=== PATIENT | male | born 1955 | race Caucasian/White ===

== ENCOUNTER 2018-04-17 12:17 | Outpatient (CLI) | payer OTHER ==
[2018-04-17] MEDS ORDERED: IOTHALAMATE MEGLUMINE 50 ML VIAL ONE (12:36)
--- NOTE | 2018-04-25 08:06 | XRAY Report ---
Reason: RIGHT HIP IMPINGEMENT SYNDROME Procedure Date: 04/17/2018 Accession Number: [id number] / [id number] Procedure: [place] - Inj/Aspiration Major Joint CPT Code: FULL RESULT: EXAM: RIGHT HIP JOINT INJECTION WITH FLUOROSCOPIC GUIDANCE EXAM DATE: 04/17/2018 01:24 PM. CLINICAL HISTORY: RIGHT HIP IMPINGEMENT SYNDROME. COMPARISON: None. TECHNIQUE: The risks, benefits, and alternatives of the procedure were discussed with the patient. All questions were answered. Written and verbal consent were obtained. The hip joint was marked under fluoroscopy and prepped and draped in a sterile manner. Local anesthesia was performed with 1% lidocaine. A 22-gauge needle was then inserted into the hip joint. 10 mL of a solution containing 0.5 % ropivacaine, 25% iodinated contrast and particulate steroid was then injected. The needle was removed without immediate complication. Other: None. Fluoroscopy Time: 0.27 minutes. Number of Images: 3. FINDINGS: Bones and Joints: No fracture or subluxation. Injection: Fluoroscopic images demonstrate needle placement and contrast in the hip joint. IMPRESSION: Fluoroscopically guided hip joint injection. RADIA
== END 2018-04-17 12:18 | disposition home or self-care (01) ==
LOC: DI 12:17
PROVIDERS: ATTEND Orthopaedic Surgery
DX: M25.851 Other specified joint disorders, right hip (principal)
CPT/HCPCS: 20610; Q9961

== ENCOUNTER 2018-04-30 22:48 | Emergency (ER) | payer OTHER ==
[2018-04-30 23:15] LABS: BASOPHILS # (AUTO) 0.1 10^3/uL (0.0-0.1); BASOPHILS % (AUTO) 0.9 %; EOSINOPHILS # (AUTO) 0.4 10^3/uL (0.0-0.7); EOSINOPHILS % (AUTO) 6.2 %; HGB - HEMOGLOBIN 14.8 g/dL (14.0-18.0); LYMPHOCYTES % (AUTO) 30.7 %; MEAN CORPUSCULAR HEMOGLOBIN 28.9 pg (27.0-31.0); MEAN CORPUSCULAR VOLUME 85.2 fL (80.0-94.0); MEAN PLATELET VOLUME 8.7 fL (7.4-11.4); MONOCYTES # (AUTO) 0.7 10^3/uL (0.0-1.0); MONOCYTES % (AUTO) 10.9 %; NEUTROPHILS # (AUTO) 3.4 10^3/uL (1.5-6.6); NEUTROPHILS % (AUTO) 51.3 %; PLT - PLATELET COUNT 215 10^3/uL (130-450); RED BLOOD COUNT 5.13 10^6/uL (4.70-6.10); RED CELL DISTRIBUTION WIDTH 13.7 % (12.0-15.0); WHITE BLOOD COUNT 6.6 x10^3/uL (4.8-10.8)
--- NOTE | 2018-04-30 23:18 | ED Physician Documentation ---
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 This evening he developed symptoms and he indicates that these "drive him nuts ". He subsequently self administered metoprolol 100 mg orally and has had good rate control with this. He indicates that he has one time previously spontaneously converted but otherwise has required cardioversion. His last cardioversion required 4 separate shocks. He indicates that he is otherwise been well he has not been ill and has been feeling well. He does admit to a glass of wine tonight. He states that his alcohol consumption is about 4 nights per week 1 glass per night. He denies any caffeine consumption. Review of Systems Constitutional: denies: Fever, Chills, Myalgias, Fatigue Eyes: denies: Decreased vision Ears: denies: Ear pain Nose: denies: Rhinorrhea / runny nose, Congestion Throat: denies: Sore throat Cardiac: reports: Palpitations. denies: Chest pain / pressure, Pedal edema, Calf pain Respiratory: denies: Dyspnea, Cough, Wheezing GI: denies: Abdominal Pain, Nausea, Vomiting : denies: Dysuria, Frequency Skin: denies: Rash Musculoskeletal: denies: Neck pain, Back pain, Extremity pain Neurologic: denies: Generalized weakness, Focal weakness, Numbness, Difficulty speaking, Syncope, Altered mental status, Headache PD PAST MEDICAL HISTORY - Past Medical History Cardiovascular: High cholesterol, Atrial fibrillation - Past Surgical History Past Surgical History: Yes General: Hiatal hernia repair - Present Medications Home Medications: Ambulatory Orders Medication Instructions Recorded Confirmed Aspirin 325 mg PO DAILY 01/20/16 01/20/16 Cholecalciferol (Vitamin D3) 2,000 units PO 01/20/16 [Vitamin D3] Rosuvastatin Calcium [Crestor] 10 mg PO 01/20/16 Flecainide [Tambocar] 2 tab PO BID 04/30/18 04/30/18 Verapamil ER [Calan SA] 1 tab PO DAILY 04/30/18 04/30/18 - Allergies Allergies/Adverse Reactions: Allergies Allergy/AdvReac Type Severity Reaction Status Date / Time No Known Drug Allergies Allergy Verified 04/30/18 22:59 - Social History Does the pt smoke?: No Smoking Status: Never smoker Does the pt drink ETOH?: Yes Does the pt have substance abuse?: No - Immunizations Immunizations are current?: Yes - POLST Patient has POLST: No PD ED PE NORMAL - Vitals Vital signs reviewed: Yes (hypertensive mild ) - General General: No acute distress, Well developed/nourished - HEENT HEENT: Atraumatic, PERRL, EOMI - Neck Neck: Supple, no meningeal sign, No bony TTP - Cardiac Cardiac: No murmur, Other (irregularly irregular ) - Respiratory Respiratory: No respiratory distress, Clear bilaterally - Abdomen Abdomen: Soft, Non tender - Back Back: No CVA TTP, No spinal TTP - Derm Derm: Normal color, Warm and dry, No rash - Extremities Extremities: No deformity, No edema - Neuro Neuro: Alert and oriented X 3, brim and crown presser 2-12 intact, No motor deficit, No sensory deficit, Normal speech Eye Opening: Spontaneous Motor: Obeys Commands Verbal: Oriented GCS Score: 15 - Psych Psych: Normal mood, Normal affect Results - Vitals Vitals: Vital Signs - 24 hr 04/30/18 04/30/18 05/01/18 22:55 23:10 00:41 Temperature 36.7 C Heart Rate 89 64 Respiratory 17 12 18 Rate Blood Pressure 145/81 H 116/82 H 95/67 O2 Saturation 98 100 95 Oxygen O2 Source Room air - EKG (time done) 2301 Rate: Rate (enter#) (92) Rhythm: Atrial fibrillation Compare to prior EKG: Changed from prior EKG (SPT 03-15-16 (post cardioversion) the rhythm has changed. ) Computer interpretation: Agree with computer 0215 Rate: Rate (enter#) (58) Rhythm: NSR Intervals: Prolonged GA Compare to prior EKG: Changed from prior EKG (SPT today the rhythm has changed to sinus and the rate has slowed. I suspect the ST elevation is repolarization) Computer interpretation: Agree with computer - Labs Labs: Laboratory Tests 04/30/18 04/30/18 04/30/18 23:00 23:00 23:00 WBC 6.6 RBC 5.13 Hgb 14.8 Hct 43.7 MCV 85.2 MCH 28.9 MCHC 34.0 RDW 13.7 Plt Count 215 MPV 8.7 Neut # (Auto) 3.4 Lymph # (Auto) 2.0 [place] # (Auto) 0.7 Eos # (Auto) 0.4 Baso # (Auto) 0.1 Absolute Nucleated RBC 0.00 Nucleated RBC % 0.0 Sodium 138 Potassium 3.3 L Chloride 103 Carbon Dioxide 29 Anion Gap 6.0 BUN 22 H Creatinine 0.8 Estimated GFR (MDRD) 97 Glucose 157 H Calcium 9.0 Total Bilirubin 0.4 AST 21 ALT 23 Alkaline Phosphatase 80 Troponin I < 0.04 Total Protein 7.9 Albumin 4.4 Globulin 3.5 Albumin/Globulin Ratio 1.3 Lipase 31 Procedures - IVC sono (time) 2310 Bedside IVC sono: IVC measures (cm) (2.58), IVC collapsed c insp (cm) (2.5), High CVP - Cardioversion 1 Risks, benefits, alternatives explained to: Pt Prep: IV, O2, night monitor, Pulse ox, Airway equip Meds: Propofol CS via: Pads, AP approach Sync: Biphasic, 100j Post cardioversion rhythm: A-fib Complications: No: Contact burn Performed by: ED MD 2 Indication: No: Tachyarrhythmia, Clinically unstable Risks, benefits, alternatives explained to: Pt Prep: IV, O2, night monitor, Pulse ox, Airway equip Meds: Propofol CS via: Pads, AP approach Sync: Biphasic, 150j Post cardioversion rhythm: NSR Complications: No: Contact burn Performed by: ED MD, Specialist, Other PD MEDICAL DECISION MAKING - ED course Complexity details: reviewed old records, reviewed results, re-evaluated patient, considered differential, d/w patient, d/w family ED course: 62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 He has not had atrial fibrillation for more than 2 years. He is symptomatic with this and has an elevated central venous pressure associated with this. He does not appear short of breath or in extremis in any way. He does have mildly decreased potassium and this is replaced intravenously and following that he remains in atrial fibrillation and electrical cardioversion is performed. He requires 2 shocks one at 100 at a second at 150 J. The second shock is successful in converting the patient to sinus rhythm. Recovers easily from the propofol and is discharged to home with his family. Departure - Departure Disposition: 01 Home, Self Care Clinical Impression: Atrial fibrillation Qualifiers: Atrial fibrillation type: paroxysmal Qualified Code(s): I48.0 - Paroxysmal atrial fibrillation Condition: Stable Instructions: ED Paroxysmal Atrial Flutter Follow-Up: Blake Alfonso MD [Primary Care Provider] - Discharge Date/Time: 05/01/18 02:44
[2018-04-30 23:22] LABS: ALBUMIN 4.4 g/dL (3.2-5.5); ALBUMIN/GLOBULIN RATIO 1.3 (1.0-2.2); BILIRUBIN,TOTAL 0.4 mg/dL (0.2-1.0); CREATININE 0.8 mg/dL (0.6-1.2); TOTAL PROTEIN 7.9 g/dL (6.7-8.2)
[2018-04-30] MEDS ORDERED: POTASSIUM CHLOR 10 MEQ/100 ML 10 MEQ/100 ML BAG IV ONE (23:42)
[2018-05-01 00:45] VITALS: BP 95/67
[2018-05-01] MEDS ORDERED: PROPOFOL 200 MG/20 ML VIAL IVP ONE (01:39)
[2018-05-01] MEDS ORDERED: PROPOFOL 200 MG/20 ML VIAL IVP STA (02:16)
== END 2018-05-01 02:44 | disposition home or self-care (01) ==
LOC: ED 22:48
DX: I48.0 Paroxysmal atrial fibrillation (principal); E78.00 Pure hypercholesterolemia, unspecified; Z79.82 Long term (current) use of aspirin
CPT/HCPCS: 36415; 80053; 83690; 84484; 85025; 92960; 93005; 96365; 99283; 99284

== ENCOUNTER 2018-05-07 16:11 | Outpatient (CLI) | payer OTHER ==
[2018-05-07 16:30] LABS: CREATININE 1.1 mg/dL (0.6-1.2)
== END 2018-05-07 16:12 | disposition home or self-care (01) ==
LOC: LAB 16:11
PROVIDERS: ATTEND Internal Medicine
DX: I48.91 Unspecified atrial fibrillation (principal); E87.6 Hypokalemia
CPT/HCPCS: 36415; 80048

== ENCOUNTER 2018-11-29 13:57 | Emergency (ER) | payer MEDICARE, OTHER ==
--- NOTE | 2018-11-29 14:06 | ED Physician Documentation ---
History of Present Illness - Stated complaint Stated Complaint: CARDIAC ISSUES - Chief complaint Chief Complaint: Cardiac - History obtained from History obtained from: Patient - History of Present Illness Timing: Today (63-year-old gentleman with history of paroxysmal atrial fibrillation. Last episode was in April of last year. He went into symptomatic atrial fibrillation at 10 AM which he describes as feeling very off, tired, with palpitations. It is similar to his prior episodes of atrial fibrillation. There was no shortness of breath or chest pain just profound fatigue. He took an extra dose of flecainide and metoprolol and feels like he probably went back out of atrial fibrillation about an hour ago.) Review of Systems Constitutional: denies: Fever, Chills Throat: denies: Dental pain / toothache, Sore throat Cardiac: reports: Palpitations. denies: Chest pain / pressure, Pedal edema, Calf pain Respiratory: denies: Dyspnea PD PAST MEDICAL HISTORY - Past Medical History Cardiovascular: High cholesterol, Atrial fibrillation Respiratory: None Neuro: None Endocrine/Autoimmune: None GI: None : None HEENT: None Psych: None Musculoskeletal: None Derm: None - Past Surgical History Past Surgical History: Yes General: Hiatal hernia repair - Present Medications Home Medications: Ambulatory Orders Medication Instructions Recorded Confirmed Aspirin 325 mg PO DAILY 01/20/16 01/20/16 Cholecalciferol (Vitamin D3) 2,000 units PO 01/20/16 [Vitamin D3] Rosuvastatin Calcium [Crestor] 10 mg PO 01/20/16 Flecainide [Tambocar] 2 tab PO BID 04/30/18 04/30/18 Verapamil ER [Calan SA] 1 tab PO DAILY 04/30/18 04/30/18 - Allergies Allergies/Adverse Reactions: Allergies Allergy/AdvReac Type Severity Reaction Status Date / Time No Known Drug Allergies Allergy Verified 11/29/18 14:05 - Social History Does the pt smoke?: No Smoking Status: Never smoker Does the pt drink ETOH?: Yes Does the pt have substance abuse?: No - Immunizations Immunizations are current?: Yes - POLST Patient has POLST: No PD ED PE NORMAL - Vitals Vital signs reviewed: Yes - General General: Alert and oriented X 3, No acute distress - Cardiac Cardiac: No murmur, Other (Regular and slightly bradycardic) - Respiratory Respiratory: No respiratory distress, Clear bilaterally - Abdomen Abdomen: Non tender - Extremities Extremities: No edema, No calf tenderness / cord - Neuro Neuro: Alert and oriented X 3, Normal speech Results - Vitals Vitals: Vital Signs - 24 hr 11/29/18 11/29/18 14:01 14:11 Temperature 36.9 C Heart Rate 40 L Respiratory 20 Rate Blood Pressure 110/77 Blood Pressure 110/77 [Right] O2 Saturation 100 Oxygen O2 Source Room air - EKG (time done) 1402 Rate: Rate (enter#) (44) Rhythm: Sinus bradycardia [place]: Normal Intervals: Normal [place] QRS: Normal Ischemia: Non specific changes (Probably from the extra dose of flecainide). No: ST elevation c/w ischemia Computer interpretation: Agree with computer PD MEDICAL DECISION MAKING - ED course ED course: 63-year-old gentleman who had an episode of paroxysmal atrial fibrillation prior to arrival that he self converted with an extra dose of flecainide and metoprolol resulting in sinus bradycardia which is modest and he is feeling better now and requests immediate discharge. Departure - Departure Disposition: 01 Home, Self Care Clinical Impression: Paroxysmal atrial fibrillation Condition: Good Record reviewed to determine appropriate education?: Yes Health Concerns: Afib Plan of Treatment: already resolved afib Care Goals: resolution of afib Assessment: resolved afib Instructions: Atrial Fibrillation Dc Comments: Follow-up with your house carpenter helper this coming week as you already plan to do. I would not do anything potentially dangerous today such as driving or climbing ladders, given that you are still bradycardic. Return as needed.
[2018-11-29 14:17] VITALS: BP 100/73
== END 2018-11-29 14:20 | disposition home or self-care (01) ==
LOC: ED 13:57
DX: I48.0 Paroxysmal atrial fibrillation (principal); R00.1 Bradycardia, unspecified; Z79.82 Long term (current) use of aspirin
CPT/HCPCS: 93005; 99283

== ENCOUNTER 2019-03-05 11:02 | Outpatient (CLI) | payer MEDICARE, OTHER ==
[2019-03-05] MEDS ORDERED: BUFFERED LIDOCAINE 10 ML SYRINGE ONE (11:21)
[2019-03-05] MEDS ORDERED: IOTHALAMATE MEGLUMINE 50 ML VIAL ONE (11:21)
[2019-03-05] MEDS ORDERED: IOTHALAMATE MEGLUMINE 50 ML VIAL IVP ONE ×2 (13:36)
[2019-03-05] MEDS ORDERED: TRIAMCINOLONE 40 MG/ML VIAL IM ONE (13:36)
[2019-03-05] MEDS ORDERED: BUFFERED LIDOCAINE 10 ML SYRINGE IU ONE ×2 (13:36)
[2019-03-05] MEDS ORDERED: ROPIVACAINE 0.5% PF 20 ML VIAL IU ONE (14:00)
--- NOTE | 2019-03-05 14:05 | XRAY Report ---
Reason: RT HIP IMPINGEMENT SYNDROME Procedure Date: 03/05/2019 Accession Number: [id number] / [id number] Procedure: [place] - Inj/Aspiration Major Joint CPT Code: FULL RESULT: EXAM: RIGHT HIP STEROID INJECTION WITH FLUOROSCOPIC GUIDANCE EXAM DATE: 03/05/2019 12:15 PM. CLINICAL HISTORY: Right hip impingement syndrome. COMPARISON: ARTHROGRAM 04/17/2018 1:09 PM. TECHNIQUE: The risks, benefits, and alternatives of the procedure were discussed with the patient. All questions were answered. Written and verbal consent were obtained. The hip joint was marked under fluoroscopy and prepped and draped in a sterile manner. Local anesthesia was performed with 1% lidocaine. A 22-gauge needle was then inserted into the hip joint. 4 mL of a solution containing 40 mg triamcinolone and 3 mL of 0.5% ropivacaine was then injected after testing of positioning of the needle tip within the joint space via injection of sterile intravenous iodinated contrast. The needle was removed without immediate complication. Other: None. Fluoroscopy Time: 0.3 minutes. Number of Images: 9. FINDINGS: Bones and Joints: No fracture or subluxation. Injection: Fluoroscopic images demonstrate needle placement and contrast in the hip joint. IMPRESSION: Successful fluoroscopically guided steroid injection of the hip. RADIA
== END 2019-03-05 11:03 | disposition home or self-care (01) ==
LOC: DI 11:02
PROVIDERS: ATTEND Orthopaedic Surgery
DX: M25.851 Other specified joint disorders, right hip (principal)
CPT/HCPCS: 20610; J2795; Q9961

== ENCOUNTER 2020-01-04 13:26 | Outpatient (CLI) | payer MEDICARE, OTHER | END 2020-01-04 13:27 | disposition home or self-care (01) | LOC: COV 13:26 | PROVIDERS: ATTEND Family Medicine | DX: R50.9 Fever, unspecified (principal); M79.10 Myalgia, unspecified site; J02.9 Acute pharyngitis, unspecified; R09.81 Nasal congestion; Z20.828 Contact with and (suspected) exposure to other viral communicable diseases ==

== ENCOUNTER 2022-03-10 13:42 | Outpatient (CLI) | payer MEDICARE, OTHER ==
--- NOTE | 2022-03-10 17:49 | XRAY Report ---
PROCEDURE: Thoracic Spine 2 View INDICATIONS: LOW THORACIC BACK PAIN TECHNIQUE: 2 views of the thoracic spine were acquired. COMPARISON: None. FINDINGS: Bones: No fractures or dislocations. No suspicious bony lesions. 12 pairs of ribs are noted, and a ppear intact where visualized. Generalized decreased osseous mineralization present. Soft tissues: No paravertebral stripe thickening. IMPRESSION: Osteopenia without fracture or malalignment Reviewed by: Carmelo Pop MD on 03/10/2022 4:48 PM AKDT Approved by: Carmelo Pop MD on 03/10/2022 4:48 PM AKDT Station ID: [id number]
== END 2022-03-10 13:43 | disposition home or self-care (01) ==
LOC: DI 13:42
PROVIDERS: ATTEND Internal Medicine
DX: M85.88 Other specified disorders of bone density and structure, other site (principal); M54.6 Pain in thoracic spine

== ENCOUNTER 2022-05-22 08:13 | Outpatient (CLI) | payer MEDICARE, OTHER ==
--- NOTE | 2022-05-22 21:41 | DEXA Report ---
PROCEDURE: Dexa Spine and/or Hip INDICATIONS: OSTEOPOROSIS TECHNIQUE: Dual energy x-ray absorptiometry (DXA) was performed on a 24h00 System. Regions measur ed are the AP Spine, femoral neck, and if needed forearm. COMPARISON: None. FINDINGS: Lumbar Spine: Bone Mineral Density 1.113 g/cm/cm,T score -0.9. Left Femoral Neck: Bone Mineral Density 0.801 g/cm/cm, T score -2.1. Left Hip: Bone Mineral Density 0.941 g/cm/cm,T score -1.1. (T score greater or equal to -1.0: NORMAL) (T score from -1.1 to -2.4: OSTEOPENIA) (T score less than or equal to -2.5 to: OSTEOPOROSIS) Impression: Osteopenia. Patients with diagnosis of osteoporosis or osteopenia should have regular bone mineral density assess ment. For those eligible for Medicare, routine testing is allowed once every 2 years. Testing frequ ency can be increased for patients who have rapidly progressing disease or for those who are receivin g medical therapy to restore bone mass. Reviewed by: Jon Loja MD on 05/22/2022 9:40 PM PST Approved by: Jon Loja MD on 05/22/2022 9:40 PM PST Station ID: [id number]
== END 2022-05-22 08:14 | disposition home or self-care (01) ==
LOC: DI 08:13
PROVIDERS: ATTEND Internal Medicine
DX: M85.89 Other specified disorders of bone density and structure, multiple sites (principal)

== ENCOUNTER 2022-05-28 10:46 | Outpatient (CLI) | payer MEDICARE, OTHER ==
[2022-05-28 15:18] VITALS: BP 122/72
--- NOTE | 2022-05-28 15:18 | SLEEP CARE CONSULTATION ---
Information from patient questionnaire entered by Duane Miguel. I have reviewed and concur with the information entered by Duane Miguel. This document represents the service I personally performed and the decisions made by me, Carlos Beach MD, [facility]. History of Present Illness Service Date and Time: 05/28/2022 1046 Reason for Visit: New patient Accompanied by: Spouse Chief Complaint: reports: Unrefreshed sleep, Snoring, Observed pauses in breathing Date of Onset: SEVERAL YEARS Usual bedtime: 9PM Time it takes to fall asleep: A FEW MIN Snores at night: Yes Observed to quit breathing while asleep: Yes Sleeps alone due to snoring: No Number of times waking at night: 1-2 Reasons for waking at night: reports: Bathroom Recalls having dreams: Yes Feels refreshed in the morning: Yes Morning headache: No Ever fallen asleep while driving: No Takes day naps: Yes Dreams during day naps: No Prior sleep studies: No Additional HPI information: I had the pleasure of seeing Dr. Buchanan along with his today regarding the possibility of him having a sleep disorder. As you know, he is a 66-year-old gentleman who complains of loud snore and his has seen him quit breathing while asleep. She also describes choking and gasping that are more frequent after he has some alcohol in the evening. The patient tells me that he normally goes to bed around 9:30 pm, and it takes him approximately just a few minutes to fall asleep. His has to sleep in a separate room. He can recall waking up on the average of 1 - 2 times during the night. Most of the time he wakes up because of having to use the bathroom. There is not a lot of tossing and turning in his sleep. No somniloquy (sleep talking) or somnambulism (sleep walking). Generally, he can recall having dreams. In the morning he usually gets up out of the bed around 5 - 7 a.m. feeling refreshed and rested. He usually does not have a morning headache. During the day he complains of feeling sleepy after lunch. His score on [place] Sleepiness Scale is 4 out of 24. He never has fallen asleep while driving nor has had any accident due to sleepiness. He usually takes a nap during the day for about 15 minutes. Upon falling asleep during the day he denies having vivid dreams. He has never had sleep paralysis, experienced cataplexy or symptoms of restless leg syndrome. He denies having impaired concentration during the day. 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 Patient is and lives in [place]. Have you smoked in the past 12 months: No Alcohol use: Yes Alcohol amount and frequency: 1-2 GLASSES WINE 3-4 TIMES A WEEK Caffeine use: No Family History Family history of sleep disordered breathing: No Allergies and Home Medications Known drug allergies: No Drug allergies reviewed: Yes Home medication list reviewed: Yes Allergy and home medication list: Allergies No Known Drug Allergies Allergy (Verified 11/29/18 14:05) Review of Systems Cardiovascular: reports: irregular heart rate or pulse, other (AFIB) Gastrointestinal: reports: heartburn Urinary: reports: impotence Neurological: denies: headaches, seizure, head trauma, disorientation, speech dysfunction, gait or balance problems, fainting or unconsciousness, other Psychiatric: denies: Attention Deficit Hyperactivity, anxiety, depression, mood disorder, claustrophobia, other Ear/Nose/Throat: reports: dry mouth/throat, wisdom teeth removed Endocrine: denies: thyroid disease, history of goiter, sluggishness, too hot or cold, excessive thirst, increased appetite, increased urination, unexplained weakness, other Musculoskeletal: reports: back pain Immunologic: denies: sneezing, rash, itching, allergies to food or environment, other Physical Exam Vital signs obtained and entered by: DUANE Foster MA Blood Pressure: 122/72 (LEFT ARM) Cuff size: regular Heart Rate: 71 O2 Saturation: 99 Height: 6 ft 4 in Weight: 178 lb 3.2 oz Body Mass Index: 21.7 BMI Classification: Normal Neck circumference: 14.5 Mood/affect: Normal HEENT: No craniofacial malformation Nostrils: patent to airflow Turbinates: normal Septum: midline Mouth and throat: normal Soft palate: normal Hard palate: normal Uvula: normal Uvula visualization: 100% Mallampati Class I Tongue: normal in size Tonsils: small Chin and jaw: normal size and position Neck: normal w/o lymphadenopathy or thyromegaly Heart: regular rate and rhythm Lungs: clear bilaterally Extremities: no edema or clubbing Neurologic: intact Impression and Plan IMPRESSION: 1. Obstructive Sleep Apnea-Hypopnea Syndrome, as suggested by history of loud and irregular snoring, observed cessation of breath while asleep, and slightly daytime hypersomnolence. I recommend proceeding to polysomnography to confirm the diagnosis and to assess severity. I informed the patient of what the sleep studies involve and after some discussion, he agreed to proceed. Plan: 1. Schedule an in-laboratory polysomnography. 2. Avoid alcohol, sedative and muscle relaxant around bedtime. 3. Return for follow up after the sleep study. Follow up with Sleep Care in: 1-2 months Visit Type: In Office Other Participants: Spouse/Significant Other Time Spent with Patient (minutes): 15 Provider Statement: I spent 100% of the Face to Face Visit with the patient with greater than 50% spent counseling the patient and coordination of care.
== END 2022-05-28 10:47 | disposition home or self-care (01) ==
LOC: SC 10:46
PROVIDERS: ATTEND Nurse Practitioner Family
DX: G47.8 Other sleep disorders (principal); R06.83 Snoring; R06.81 Apnea, not elsewhere classified; I48.0 Paroxysmal atrial fibrillation
CPT/HCPCS: 99202; G0463; 99212

== ENCOUNTER 2022-06-13 20:35 | Outpatient (CLI) | payer MEDICARE, OTHER | END 2022-06-13 20:36 | disposition home or self-care (01) | LOC: SC 20:35 | PROVIDERS: ATTEND Internal Medicine Pulmonary Disease | DX: G47.8 Other sleep disorders (principal); R06.81 Apnea, not elsewhere classified; I49.9 Cardiac arrhythmia, unspecified; R06.83 Snoring | CPT/HCPCS: 95810 ==

== ENCOUNTER 2022-08-24 08:46 | Outpatient (CLI) | payer MEDICARE, OTHER ==
[2022-08-24 09:09] VITALS: BP 104/62
--- NOTE | 2022-08-24 09:09 | SLEEP CARE CONSULTATION ---
Information from patient questionnaire entered by Evangelina Miguel. I have reviewed and concur with the information entered by Evangelina Miguel. This document represents the service I personally performed and the decisions made by , Isabella Ren ARNP. History of Present Illness Service Date and Time: 08/24/2022 0846 Current [place] Sleepiness Scale score: 2 (08/24/22) Additional HPI information: EDI SANTORO returns for follow up and results of the recently performed polysomnography. The patient was informed of the following findings: No significant sleep disordered breathing with an average AHI of 3.9 and rose oxygen saturation of 82%. Supine AHI 12.8. I explained the pathophysiology behind obstructive sleep apnea. Patient does not have sleep apnea and was advised how weight gain could increase the risk of developing sleep apnea in the future. Patient does not have significant sleep disordered breathing but has elevated AHI in supine position so advised positional therapy. Methods to achieve positional management therapy were discussed; such as, positioning with pillows, wearing a T-shirt with tennis balls sewn into the back or commercially available products. Patient has loud snoring. Snoring can be reduced by weight loss. Weight loss is best achieved with diet consult. Patient instructed to contact PCP for referral. Snoring can also be treated with an oral appliance from a dentist. Advised to check insurance coverage. In addition, an ENT evaluation can be do to see if other treatment is indicated. Patient counseled not drink alcohol less than 4 hours before bedtime as it can increase snoring and apnea. Patient was cautioned about risks of drowsy driving until sleepiness symptoms resolve. Patient denies drowsy driving. Sleep Study - Results Type of Sleep Study: Polysomnography (COMPLETED 06/13/22) Polysomnography/Home Sleep Study results: IMPRESSION: The quality of the study is good. 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 The sleep architecture was relatively normal considering the first-night effect. Respiratory monitoring showed no significant sleep disordered breathing (AHI = 3.9) or hypoxia (rose oxygen saturation of 82% and only 1.6% to the total sleep time was spent with oxygen saturation below 90%). The few respiratory events occurred only during supine sleep (supine AHI = 12.8; non-supine = 0.00). Snore was loud but only when the patient was supine. There was no significant periodic leg movement of sleep. Cardiac rhythm was normal sinus rhythm without significant arrhythmia. No abnormal behavior (parasomnia) observed during the night. Allergies and Home Medications Known drug allergies: No Drug allergies reviewed: Yes Home medication list reviewed: Yes (no changes) Allergy and home medication list: Allergies No Known Drug Allergies Allergy (Verified 08/23/22 11:11) Review of Systems Review of systems same as previous: No (osteopenia) Physical Exam Vital signs obtained and entered by: EVANGELINA Foster MA Blood Pressure: 104/62 (LEFT ARM) Cuff size: regular Heart Rate: 98 O2 Saturation: 97 Height: 6 ft 4 in Weight: 178 lb 12.8 oz Body Mass Index: 21.7 BMI Classification: Normal Impression and Plan Snoring but no significant sleep disordered breathing. His supine AHI was elevated at 12.8. He was advised to avoid supine sleep to control apneas. An oral appliance can also be used for snoring. This would require a dental consultation. Patient cautioned not to use other online appliances as can cause bite issues. A list of accredited dentists in [facility] and one local dentist who makes oral appliances is available in office as needed. Patient is advised to check if insurance will cover. An ENT consult can also be helpful to determine if any other treatment is an option. * Avoid supine sleep * Avoid alcohol consumption near bedtime * The patient is cautioned about driving until sleepiness is completely resolved. * Return as needed for follow up. I will response compliance at that time. Counseling Topics: Sleeping position Visit Type: In Office Time Spent with Patient (minutes): 20 Provider Statement: I spent 100% of the Face to Face Visit with the patient with greater than 50% spent counseling the patient and coordination of care.
== END 2022-08-24 08:47 | disposition home or self-care (01) ==
LOC: SC 08:46
PROVIDERS: ATTEND Nurse Practitioner Family
DX: R06.83 Snoring (principal)
CPT/HCPCS: 99213; G0463; 99212

== ENCOUNTER 2023-05-08 09:12 | Outpatient (CLI) | payer MEDICARE, OTHER | END 2023-05-08 09:13 | disposition critical access hospital (66) | LOC: EMS 09:12 | DX: R07.89 Other chest pain (principal) | CPT/HCPCS: A0425; A0427 ==

== ENCOUNTER 2023-05-08 09:28 | Emergency (ER) | payer MEDICARE, OTHER ==
[2023-05-08 09:48] LABS: BASOPHILS % (AUTO) 0.6 %; EOSINOPHILS # (AUTO) 0.4 10^3/uL (0.0-0.7); EOSINOPHILS % (AUTO) 7.2 %; HCT - HEMATOCRIT 44.2 % (42.0-52.0); HGB - HEMOGLOBIN 13.8 g/dL (14.0-18.0); LYMPHOCYTES # (AUTO) 1.3 10^3/uL (1.5-3.5); LYMPHOCYTES % (AUTO) 24.5 %; MEAN CORPUSCULAR HEMOGLOBIN 27.3 pg (27.0-31.0); MEAN CORPUSCULAR HGB CONC 31.2 g/dL (32.0-36.0); MEAN CORPUSCULAR VOLUME 87.5 fL (80.0-94.0); MEAN PLATELET VOLUME 10.2 fL (7.4-11.4); MONOCYTES # (AUTO) 0.4 10^3/uL (0.0-1.0); MONOCYTES % (AUTO) 8.5 %; NEUTROPHILS % (AUTO) 58.6 %; PLT - PLATELET COUNT 212 10^3/uL (130-450); RED BLOOD COUNT 5.05 10^6/uL (4.70-6.10); RED CELL DISTRIBUTION WIDTH 13.8 % (12.0-15.0); WHITE BLOOD COUNT 5.2 x10^3/uL (4.8-10.8)
--- NOTE | 2023-05-08 10:01 | XRAY Report ---
PROCEDURE: Chest 1 View X-Ray INDICATIONS: Chest pain TECHNIQUE: One view of the chest was acquired. COMPARISON: None. FINDINGS: Surgical changes and devices: None. Lungs and pleura: No pleural effusions or pneumothorax. Lungs are clear. Mediastinum: Mediastinal contours appear normal. Heart size is normal. Bones and chest wall: No suspicious bony lesions. Overlying soft tissues appear unremarkable. IMPRESSION: No acute cardiopulmonary process. Reviewed by: Erin Scott MD on 05/08/2023 10:00 AM [facility] Approved by: Erin Scott MD on 05/08/2023 10:00 AM [facility] Station ID: [id number]
[2023-05-08 10:08] LABS: ALBUMIN 4.1 g/dL (3.2-5.5); ALBUMIN/GLOBULIN RATIO 1.6 (1.0-2.2); BILIRUBIN,TOTAL 0.4 mg/dL (0.2-1.0); CREATININE 0.8 mg/dL (0.6-1.3); POTASSIUM 3.9 mmol/L (3.5-4.5); TOTAL PROTEIN 6.7 g/dL (6.4-8.9)
[2023-05-08 10:18] LABS: TROPONIN I HIGH SENSITIVITY 2.3 ng/L (2.3-19.7)
--- NOTE | 2023-05-08 10:41 | ED Physician Documentation ---
PD HPI CHEST PAIN - Stated complaint Stated Complaint: CHEST PX - Chief complaint Chief Complaint: Cardiac - History obtained from History obtained from: Patient - Additional information Additional information: The patient comes to the emergency department with chief complaint of chest pressure that has persisted overnight. He states that the discomfort is fairly mild, around a 2 out of 10, and really does not seem to be exacerbated or remitted by anything. He does note that he might feel a little more if he takes a deep breath but has not had clear worsening of the pressure with this. He denies any accompanying factors. No radiation, shortness of breath, nausea, sweating, or any other discomfort. He states that he has a history of paroxysmal atrial fibrillation which rarely bothers him. He has been followed by cardiology for this and was previously on flecainide, though he is currently on the flecainide, along with metoprolol, only on an as-needed basis if he has palpitations or A-fib. Patient states that on the rare occasion where he has had A-fib, it is rapidly responsive to his medications. The patient is not anticoagulated currently. He states that his hemoglobin A1c is 6.1 and that he has hyperlipidemia which is well-controlled on meds. PD PAST MEDICAL HISTORY - Past Medical History Cardiovascular: High cholesterol, Atrial fibrillation Respiratory: None Neuro: None Endocrine/Autoimmune: None GI: None : None HEENT: None Psych: None Musculoskeletal: None Derm: None - Past Surgical History Past Surgical History: Yes General: Other Cardiovascular: Other - Present Medications Home Medications: Ambulatory Orders Medication Instructions Recorded Confirmed Cholecalciferol (Vitamin D3) 2,000 units PO DAILY 01/20/16 05/08/23 [Vitamin D3] Rosuvastatin Calcium [Crestor] See Rx Instructions .ROUTE .COMPLEX 01/20/16 05/08/23 Verapamil ER [Calan SA] See Rx Instructions .ROUTE .COMPLEX 04/30/18 05/08/23 Aspirin [Vazalore] 81 mg PO DAILY 05/08/23 05/08/23 Calcium Carbonate [Tums (Calcium 1,000 mg PO DAILY 05/08/23 05/08/23 Carbonate 500mg)] - Allergies Allergies/Adverse Reactions: Allergies Allergy/AdvReac Type Severity Reaction Status Date / Time No Known Drug Allergies Allergy Verified 05/08/23 09:43 - Social History Does the pt smoke?: No Smoking Status: Never smoker Does the pt drink ETOH?: Yes Does the pt have substance abuse?: No - Immunizations Immunizations are current?: Yes - POLST Patient has POLST: No POLST Status: Full Code PD ED PE NORMAL - Vitals Vital signs reviewed: Yes - General General: Alert and oriented X 3, No acute distress, Well developed/nourished - HEENT HEENT: Atraumatic, PERRL, EOMI, Moist mucous membranes - Neck Neck: Supple, no meningeal sign - Cardiac Cardiac: RRR, No murmur - Respiratory Respiratory: No respiratory distress, Clear bilaterally - Abdomen Abdomen: Soft, Non tender, Non distended - Derm Derm: Normal color, Warm and dry, No rash - Extremities Extremities: No deformity, No edema, No calf tenderness / cord - Neuro Neuro: Alert and oriented X 3, Other (grossly intact) - Psych Psych: Normal mood, Normal affect Results - Vitals Vitals: Oxygen O2 Source Room air - EKG (time done) 0930 EKG releavant findings:: EKG personally interpreted by author of this note. Relevant findings are: Rate: Rate (enter#) (80) Rhythm: NSR [place]: Normal Intervals: Normal ID QRS: Normal Ischemia: Normal ST segments Compare to prior EKG: Old EKG unavailable Computer interpretation: Agree with computer - Labs Labs: Laboratory Tests 05/08/23 05/08/23 05/08/23 09:43 09:43 11:52 WBC 5.2 RBC 5.05 Hgb 13.8 L Hct 44.2 MCV 87.5 MCH 27.3 MCHC 31.2 L RDW 13.8 Plt Count 212 MPV 10.2 Neut # (Auto) 3.0 Lymph # (Auto) 1.3 L Coffey # (Auto) 0.4 Eos # (Auto) 0.4 Baso # (Auto) 0.0 Absolute Nucleated RBC 0.00 Nucleated RBC % 0.0 Sodium 138 Potassium 3.9 Chloride 105 Carbon Dioxide 29 Anion Gap 4.0 L BUN 21 H Creatinine 0.8 Estimated GFR (MDRD) 96 Glucose 131 H Calcium 9.0 Total Bilirubin 0.4 AST 17 ALT 20 Alkaline Phosphatase 57 Troponin I High Sens 2.3 2.3 Total Protein 6.7 Albumin 4.1 Globulin 2.6 Albumin/Globulin Ratio 1.6 Lipase 22 PD Medical Decision Making - ED course Complexity details: reviewed results, re-evaluated patient, considered differential, d/w patient ED course: The pt was minimally symptomatic during his stay in the ED, with mild but persistent symptoms to begin with. He had mild risk factors, including hyperlipidemia, though this was well-controlled on meds. Age is a more significant risk factor for this patient. His work-up was negative. EKG was normal, and both sets of troponins were low normal and without rise. I d/w pt and that it is very important that he calls his superintendent mechanical to follow up on this visit. 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 Departure - Departure Disposition: 01 Home, Self Care Clinical Impression: Chest pain Condition: Stable Instructions: ED Chest Pain Atypical Unkn Cause Comments: Your EKG looks fantastic and you have remained in a normal sinus rhythm throughout your entire stay in the ED. Your high-sensitivity troponins have been stable at 2.3 each. This is the lower end of the normal range, and is reassuring at this point in time. However, if you have recurrent episodes like this, it is important that you follow-up with your superintendent mechanical to determine whether further investigations needed. If you develop severely worsening symptoms, please return to the emergency department immediately. Forms: PCP List Discharge Date/Time: 05/08/23 13:02
[2023-05-08 11:41] VITALS: O2SAT 98
[2023-05-08 12:58] VITALS: BP 124/81
== END 2023-05-08 13:02 | disposition home or self-care (01) ==
LOC: EDUNIT# → ED 09:28
DX: R07.89 Other chest pain (principal); I48.91 Unspecified atrial fibrillation; E78.00 Pure hypercholesterolemia, unspecified; Z79.899 Other long term (current) drug therapy; Z79.82 Long term (current) use of aspirin
CPT/HCPCS: 36415; 80053; 83690; 84484; 85025; 93005; 99283; 99284

== ENCOUNTER 2024-01-24 08:46 | Outpatient (CLI) | payer MEDICARE, OTHER ==
[2024-01-24 09:27] LABS: BASOPHILS % (AUTO) 0.6 %; EOSINOPHILS # (AUTO) 0.1 10^3/uL (0.0-0.7); EOSINOPHILS % (AUTO) 2.6 %; HGB - HEMOGLOBIN 14.7 g/dL (14.0-18.0); MEAN CORPUSCULAR VOLUME 87.6 fL (80.0-94.0); MEAN PLATELET VOLUME 10.2 fL (7.4-11.4); MONOCYTES # (AUTO) 0.5 10^3/uL (0.0-1.0); MONOCYTES % (AUTO) 9.6 %; NEUTROPHILS # (AUTO) 3.7 10^3/uL (1.5-6.6); PLT - PLATELET COUNT 254 10^3/uL (130-450); RED BLOOD COUNT 5.25 10^6/uL (4.70-6.10); WHITE BLOOD COUNT 5.4 x10^3/uL (4.8-10.8)
[2024-01-24 09:28] LABS: SLIDE REVIEW? Indicated
[2024-01-24 09:49] LABS: ALBUMIN 4.3 g/dL (3.2-5.5); ALBUMIN/GLOBULIN RATIO 1.5 (1.0-2.2); ALKALINE PHOSPHATASE 59 IU/L (42-121); ALT ALANINE AMINOTRANSFERASE 17 IU/L (10-60); AST ASPARTATE AMINOTRANSFERASE 17 IU/L (10-42); BILIRUBIN,TOTAL 0.4 mg/dL (0.2-1.0); BUN - BLOOD UREA NITROGEN 22 mg/dL (6-20); CALCIUM 9.5 mg/dL (8.5-10.3); CARBON DIOXIDE - CO2 29 mmol/L (21-32); CHLORIDE 104 mmol/L (101-111); CREATININE 0.8 mg/dL (0.6-1.3); CRP - C-REACTIVE PROTEIN < 0.5 mg/dL (<0.5); GFR - MDRD 96 (>89); GLUCOSE 129 mg/dL (74-104); SODIUM 137 mmol/L (135-145); TOTAL PROTEIN 7.2 g/dL (6.4-8.9)
[2024-01-24 10:01] LABS: PLATELET ESTIMATE, MANUAL NORMAL (130-450,000) (NORMAL); PLATELET MORPHOLOGY NORMAL APPEARANCE (NORMAL)
[2024-01-24 10:02] LABS: WBC MORPHOLOGY (MULTIPLE) 1+ REACTIVE LYMPHS (NORMAL)
[2024-01-25 04:14] LABS: IMMUNOGLOBULIN A (IGA) 270 mg/dL (61-437); IMMUNOGLOBULIN G (IGG) 1234 mg/dL (603-1613); IMMUNOGLOBULIN M (IGM) 118 mg/dL (20-172)
[2024-01-28 16:08] LABS: A/G RATIO 1.2 (0.7-1.7); ALBUMIN 3.8 g/dL (2.9-4.4); ALPHA-1-GLOBULIN 0.2 g/dL (0.0-0.4); ALPHA-2-GLOBULIN 0.6 g/dL (0.4-1.0); BETA GLOBULIN 1.1 g/dL (0.7-1.3); BETA-2 MICROGLOBULIN SERUM 1.7 mg/L (0.6-2.4); GAMMA GLOBULIN 1.2 g/dL (0.4-1.8); GLOBULIN, TOTAL 3.1 g/dL (2.2-3.9); PROTEIN TOTAL 6.9 g/dL (6.0-8.5)
[2024-01-28 21:07] LABS: KAPPA FREE LT CHAINS SERUM 14.5 mg/L (3.3-19.4); KAPPA/LAMBDA RATIO SERUM 1.15 (0.26-1.65); LAMBDA FREE LT CHAINS SERUM 12.6 mg/L (5.7-26.3)
[2024-02-07 08:12] LABS: PATHOLOGIST SLIDE COMMENTS SEE SEPARATE REPORT
== END 2024-01-24 08:47 | disposition home or self-care (01) ==
LOC: LAB 08:46
PROVIDERS: ATTEND Nurse Practitioner
DX: C86.4 Blastic NK-cell lymphoma (principal)
CPT/HCPCS: 36415; 80053; 81599; 82232; 82784; 83521; 83615; 84155; 84156; 84165; 84166; 85025; 86140; 86334

== ENCOUNTER 2024-01-26 08:00 | Outpatient (CLI) | payer MEDICARE, OTHER ==
[2024-01-30 14:09] LABS: ALBUMIN URINE 19.6 % (.); ALPHA-2-GLOBULIN URINE 20.7 % (.); BETA GLOBULIN URINE 33.8 % (.); GAMMA GLOBULIN URINE 22.9 % (.); M-SPIKE % URINE Not Observed % (Not Observed); PROTEIN TOTAL URINE 5.7 mg/dL (Not Estab.); PROTEIN URINE 24HR 86 mg/24 hr (30-150)
== END 2024-01-26 08:01 | disposition home or self-care (01) ==
LOC: LAB.R 08:00
PROVIDERS: ATTEND Nurse Practitioner
DX: D48.5 Neoplasm of uncertain behavior of skin (principal)
CPT/HCPCS: 84156; 84166

== ENCOUNTER 2024-01-29 07:16 | Outpatient (CLI) | payer MEDICARE, OTHER ==
[2024-01-29] MEDS ORDERED: MIDAZOLAM 2 MG/2 ML VIAL ONE (08:04)
[2024-01-29] MEDS ORDERED: fentaNYL 100 MCG/2 ML VIAL ONE (08:04)
[2024-01-29 08:05] LABS: PARTIAL THROMBOPLASTIN TIME 29.7 secs (24.9-33.3)
[2024-01-29 08:09] LABS: INR 1.2 (0.8-1.2); PT - PROTHROMBIN TIME 12.6 secs (9.9-12.6)
[2024-01-29] MEDS ORDERED: LIDOCAINE-MPF 1% 5 ML VIAL ONE (08:15)
[2024-01-29] MEDS: LACTATED RINGERS 500 ML IV ONE ×2 (09:00)
[2024-01-29] MEDS: fentaNYL 100 MCG/2 ML VIAL IVP STA (09:15)
[2024-01-29 10:07] VITALS: O2SAT 98
[2024-01-29] MEDS: LIDOCAINE-MPF 1% 5 ML VIAL TD ONE (10:12)
[2024-01-29 11:10] VITALS: BP 128/72
--- NOTE | 2024-01-29 12:49 | CT Report ---
PROCEDURE: Bone Marrow Biopsy w/Aspiratio Sedation analgesia for 0 minutes. INDICATIONS: PLASMA CELL NEOPLASM TECHNIQUE: The indications, alternatives, benefits, risks, and possible complications of the procedure were comm unicated to the patient. Informed written consent from the patient was obtained and placed in the art. Continuous EKG and hemodynamic monitoring was started by trained personnel. For radiation dose reduction, the following was used: automated exposure control, adjustment of mA and/or kV according to patient size. The patient was brought to the CT suite and wetlands conservation laborer spiral CT imaging was performed with localization g rid. The appropriate site for percutaneous access to the biopsy target was marked, was prepped and d raped sterilely, and was infused with local anaesthesia. Under CT guidance, a core biopsy trocar and needle set was advanced to the biopsy target, and specimen(s) were obtained. The trocar and needle were then removed, and the patient was sent for post-procedure monitoring. COMPARISON: None. FINDINGS: Biopsy site: Right posterior iliac bone. Needle: 20 gauge biopsy needle with introducer trocar. Number of passes: 2 Medications: 1% lidocaine for local anaesthesia. IV Fentanyl and Versed for conscious sedation for 0 minutes (see nursing record). Complications: None. IMPRESSION: Successful CT-guided bone marrow biopsy. Reviewed by: Jam Gaming MD on 01/29/2024 12:48 PM PDT Approved by: Jam Gaming MD on 01/29/2024 12:48 PM PDT Station ID: [id number]
== END 2024-01-29 07:17 | disposition home or self-care (01) ==
LOC: DI 07:16
PROVIDERS: ATTEND Nurse Practitioner
DX: C90.00 Multiple myeloma not having achieved remission (principal); D48.5 Neoplasm of uncertain behavior of skin; R89.7 Abnormal histological findings in specimens from other organs, systems and tissues
CPT/HCPCS: 36415; 38222; 85610; 85730; 99156; 99157; J7120